=== PATIENT | male | born 1965 | race Caucasian/White ===

== ENCOUNTER 2020-06-03 07:53 | Day surgery (SDC) | payer BC ==
[2020-05-25 16:37] LABS: BASOPHILS % (AUTO) 0.5 % (0-1); EOSINOPHILS # (AUTO) 0.1 X10'3 (0-0.9); EOSINOPHILS % (AUTO) 1.4 % (0-6); LYMPHOCYTES % (AUTO) 21.5 % (21-51); MEAN CORPUSCULAR HEMOGLOBIN 30.7 PG (27.0-31.0); MEAN CORPUSCULAR HGB CONC 33.7 g/dL (33.0-36.5); MEAN CORPUSCULAR VOLUME 91.1 FL (78-98); MEAN PLATELET VOLUME 8.1 FL (7.4-10.4); MONOCYTES # (AUTO) 0.7 X10'3 (0-0.9); MONOCYTES % (AUTO) 8.1 % (2-12); NEUTROPHILS # (AUTO) 6.3 X10'3 (1.8-7.7); NEUTROPHILS % (AUTO) 68.5 % (42-75); PRE OP HEMATOCRIT 42.6 % (42.0-52.0); PRE OP HEMOGLOBIN 14.4 g/dL (14.0-17.9); PRE OP PLATELET COUNT 267 X10'3 (140-440); RED BLOOD COUNT 4.68 X10'6 (4.70-6.10); RED CELL DISTRIBUTION WIDTH 14.1 % (11.5-14.5)
[2020-05-25 16:43] LABS: ALBUMIN 3.7 G/DL (3.4-5.0); ALKALINE PHOSPHATASE 61 IU/L (46-116); BLOOD UREA NITROGEN 17 MG/DL (7-18); BUN/CREATININE RATIO 16.7 (5.4-32.0); CALCIUM 8.8 MG/DL (8.5-10.1); CHLORIDE 106 MMOL/L (99-107); CREATININE 1.02 MG/DL (0.60-1.10); PRE OP ALT 32 U/L (30-65); PRE OP ANION GAP 10 (8-16); PRE OP AST 15 U/L (10-37); PRE OP BILIRUB, TOTAL 0.5 MG/DL (0.0-1.0); PRE OP GLUCOSE 100 MG/DL (70-104); PRE OP POTASSIUM 3.8 MMOL/L (3.4-5.1); PRE OP SODIUM 142 MMOL/L (135-145); TOTAL CARBON DIOXIDE 26.4 MMOL/L (24-32); TOTAL PROTEIN 7.4 G/DL (6.4-8.2); eGFR 76 ML/MIN
[~2020-06-03] VITALS: Ht 193 cm; Wt 210.9 kg
[2020-06-03] VITALS (7 sets, daily range): BP systolic 120–170; BP diastolic 75–88
[~2020-06-03 07:53] MED LIST: BUPIVAcaine/PF 2.5mg/ml (0.25%) 10ml vial ONE; ceFAZolin 2gm in dextrose, iso 50 ML IV ONE; famotidine 20mg tablet PO ONE; ringers solution, lacted 1,000 ML IV SCH
[2020-06-03] MEDS ORDERED: FURO-150 PO (08:27)
[2020-06-03] MEDS ORDERED: MULTIVITAMIN (08:27)
[2020-06-03] MEDS ORDERED: ALBU8HFA PO (08:27)
[2020-06-03] MEDS ORDERED: POTA10TA36 PO (08:27)
[2020-06-03] MEDS ORDERED: AMLO10TA53 PO (08:27)
[2020-06-03] MEDS ORDERED: GABA600T13 PO (08:27)
[2020-06-03] MEDS ORDERED: LIDOcaine 0.5% (5mg/ml) 50ml vial ONE ×2 (09:29→11:04)
[2020-06-03] MEDS ORDERED: fentaNYL/PF 50MCG/1 ML 2ML syringe ONE (10:42)
[2020-06-03] MEDS ORDERED: midazolam 2 mg/2 ml injection ONE ×2 (10:43→11:08)
[2020-06-03] MEDS ORDERED: LIDOcaine 1%/PF 5ML 10 MG/ML VIAL ONE ×2 (10:47→11:04)
[2020-06-03] MEDS ORDERED: propofol inj 20 ML IV ONE (10:47)
[2020-06-03] MEDS ORDERED: BUPIVAcaine 0.5% inj/PF 30 ML ONE (11:00)
--- NOTE | 2020-06-03 11:28 | NUR ---
Received from OR via [facility], accompanied by Anesthesiologist DR FREDERICK and report given by Anesthesiologist. 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 Addendum: 06/03/20 at 1147 by Geneva Ramirez RN Amended: Links added.
[2020-06-03] MEDS ORDERED: ceFAZolin 1000mg inj ONE (11:51)
--- NOTE | 2020-06-03 12:28 | NUR ---
PT UP AND AD SUMAN[facility], STEADY ON FEET, VOIDED, D/C INSTRUCTIONS GIVEN AND GONE OVER W/PT WHO VERBALIZED UNDERSTANDING, PT D/CD TO HOME VIA W/C TO PRIVATE VEHICLE W/O INCIDENT. Addendum: 06/03/20 at 1242 by Geneva Ramirez RN Amended: Links added.
== END 2020-06-03 12:28 | disposition home or self-care (01) ==
LOC: PAS 07:53 → EDUNIT# 12:15 → PAS 12:28
PROVIDERS: ATTEND Orthopaedic Surgery Hand Surgery
DX: G56.01 Carpal tunnel syndrome, right upper limb (principal); M65.351 Trigger finger, right little finger; J45.909 Unspecified asthma, uncomplicated; I10 Essential (primary) hypertension; F12.90 Cannabis use, unspecified, uncomplicated; G47.33 Obstructive sleep apnea (adult) (pediatric); M16.11 Unilateral primary osteoarthritis, right hip; E66.01 Morbid (severe) obesity due to excess calories; Z68.43 Body mass index [BMI] 50.0-59.9, adult; Z87.891 Personal history of nicotine dependence; Z72.89 Other problems related to lifestyle; Z11.59 Encounter for screening for other viral diseases; Z79.899 Other long term (current) drug therapy
CPT/HCPCS: 26055; 29848; 36415; 80053; 82948; 85025; 93005; J0690; J2001; J2250; J2704; J3010; J3490; U0003; A4215; A4615; A4618; J7120

== ENCOUNTER 2020-07-15 05:51 | Day surgery (SDC) | payer BC ==
[2020-07-08 11:08] LABS: BASOPHILS % (AUTO) 0.6 % (0-1); EOSINOPHILS # (AUTO) 0.2 X10'3 (0-0.9); EOSINOPHILS % (AUTO) 2.1 % (0-6); LYMPHOCYTES # (AUTO) 1.7 X10'3 (1.1-4.8); LYMPHOCYTES % (AUTO) 23.5 % (21-51); MEAN CORPUSCULAR HEMOGLOBIN 30.8 PG (27.0-31.0); MEAN CORPUSCULAR HGB CONC 33.7 g/dL (33.0-36.5); MEAN CORPUSCULAR VOLUME 91.4 FL (78-98); MEAN PLATELET VOLUME 7.5 FL (7.4-10.4); MONOCYTES # (AUTO) 0.6 X10'3 (0-0.9); MONOCYTES % (AUTO) 8.2 % (2-12); NEUTROPHILS # (AUTO) 4.9 X10'3 (1.8-7.7); NEUTROPHILS % (AUTO) 65.6 % (42-75); PRE OP HEMATOCRIT 43.4 % (42.0-52.0); PRE OP HEMOGLOBIN 14.6 g/dL (14.0-17.9); PRE OP PLATELET COUNT 263 X10'3 (140-440); RED BLOOD COUNT 4.75 X10'6 (4.70-6.10); RED CELL DISTRIBUTION WIDTH 14.3 % (11.5-14.5)
[2020-07-08 11:21] LABS: ALBUMIN 3.6 G/DL (3.4-5.0); ALBUMIN/GLOBULIN RATIO 0.9 (1.1-1.5); ALKALINE PHOSPHATASE 61 IU/L (46-116); BLOOD UREA NITROGEN 15 MG/DL (7-18); BUN/CREATININE RATIO 16.7 (5.4-32.0); CALCIUM 8.9 MG/DL (8.5-10.1); CHLORIDE 105 MMOL/L (99-107); PRE OP ALT 34 U/L (30-65); PRE OP ANION GAP 11 (8-16); PRE OP AST 17 U/L (10-37); PRE OP BILIRUB, TOTAL 0.4 MG/DL (0.0-1.0); PRE OP GLUCOSE 96 MG/DL (70-104); PRE OP SODIUM 140 MMOL/L (135-145); TOTAL CARBON DIOXIDE 23.9 MMOL/L (24-32); TOTAL PROTEIN 7.6 G/DL (6.4-8.2); eGFR 88 ML/MIN
[~2020-07-15] VITALS: Ht 193 cm; Wt 205.7 kg
[~2020-07-15 05:51] MED LIST changes: +ALBU8HFA PO; +AMLO10TA53 PO; -BUPIVAcaine/PF 2.5mg/ml (0.25%) 10ml vial ONE; +FURO-150 PO; +GABA600T13 PO; +MULTIVITAMIN; +POTA10TA36 PO; -ceFAZolin 2gm in dextrose, iso 50 ML IV ONE; +ceFAZolin inj. 3,000 MG in normal saline 100ml IV soln 100 ML IV ONE
[2020-07-15 06:30] VITALS: BP 160/80
[2020-07-15] MEDS ORDERED: BUPIVAcaine/PF 2.5mg/ml (0.25%) 10ml vial ONE (06:38)
[2020-07-15 06:50] VITALS: BP 160/80
[2020-07-15] MEDS ORDERED: LIDOcaine 1% 30ml preserv. free vial ONE (07:14)
[2020-07-15] MEDS ORDERED: ringers solution, lacted 1,000 ML IV SCH (07:14)
[2020-07-15] MEDS ORDERED: meperidine/PF 25mg/ml syringe IV PRN ×3 (07:15)
[2020-07-15] MEDS ORDERED: proCHLORperazine 10 MG/2 ml inj IV PRN (07:15)
[2020-07-15] MEDS ORDERED: ondansetron/PF 4mg/2ml inj IV PRN (07:15)
[2020-07-15] MEDS ORDERED: morphine 4 MG/ML inj SYRINge IV PRN (07:15)
[2020-07-15] MEDS ORDERED: morphine 2 MG/ML inj. syringe IV PRN (07:15)
[2020-07-15] MEDS ORDERED: MIDAZolam 5mg/5ml vial ONE (07:29)
[2020-07-15] MEDS ORDERED: ketorolac trometh. 30mg/ml inj. ONE (07:29)
[2020-07-15] MEDS ORDERED: fentaNYL/PF 50MCG/1 ML 2ML syringe ONE (07:29)
[2020-07-15] MEDS ORDERED: BUPIVAcaine/PF 2.5mg/ml (0.25%) 10ml vial IJ ONE (07:30)
[2020-07-15] MEDS ORDERED: propofol inj 20 ML IV ONE (07:33)
[2020-07-15] MEDS ORDERED: LIDOcaine 2% (20mg/ml) 5ml vial ONE (07:33)
[2020-07-15 08:21] VITALS: BP 116/72
--- NOTE | 2020-07-15 08:21 | NUR ---
Received from OR via [facility] , accompanied by Anesthesiologist PIA and report given by Anesthesiolgist. DENIES PAIN. LEFT WRIST DRESSING IS CDI. VSS. PATIENT VSS AT THIS TIME. ICE APPLIED. 20G PIVI N RIGHT UE Addendum: 07/15/20 at 0873 by Toribio Keys RN, RN Amended: Links added.
[2020-07-15 08:26] VITALS: BP 116/72
[2020-07-15 08:31] VITALS: BP 114/81
[2020-07-15 08:41] VITALS: BP 115/80
== END 2020-07-15 08:51 | disposition home or self-care (01) ==
LOC: PAS 05:51
PROVIDERS: ATTEND Orthopaedic Surgery Hand Surgery
DX: G56.02 Carpal tunnel syndrome, left upper limb (principal); M65.332 Trigger finger, left middle finger; Z20.828 Contact with and (suspected) exposure to other viral communicable diseases
CPT/HCPCS: 26055; 29848; 36415; 80053; 82948; 85025; 87635; J0690; J1885; J2001; J2250; J2704; J3010; J3490; A4215; A4615; J7120